=== PATIENT | male | born 1990 | race Caucasian/White ===

== ENCOUNTER 2017-04-10 22:14 | Emergency (ER) | payer OTHER ==
[2017-04-10 22:21] VITALS: BP 151/101; PULSE 85; RESP 16; TEMP 98.4
[2017-04-10] MEDS ORDERED: BUPIVACAINE (PF) 0.5% 30 ML VIAL SQ STA (22:29)
[2017-04-10] MEDS ORDERED: MORPHINE SULFATE 2 MG/ML SYRINGE IM STA (22:30)
[2017-04-10] MEDS ORDERED: KETOROLAC 30 MG/ML 1 ML VIAL IM STA (22:30)
--- NOTE | 2017-04-10 22:34 | ED ---
ENT HPI - General Chief complaint: ENT Stated complaint: dental pain Time Seen by Provider: 04/10/17 22:23 Source: patient Mode of arrival: ambulatory Limitations: no limitations - History of Present Illness Initial comments: 26-year-old male patient presented to the emergency department today for evaluation of left lower dental pain. Patient states that he has had pain for the last week. States that it started out as a mild aching pain. He did see the dentist on Saturday who has scheduled him to have a dental extraction on 04/12/2017. Patient states that yesterday the pain became much more severe. States he is unable to eat, drink, or sleep related to the pain. He reports that he did have swelling to the face up near his eye earlier today. States he has been taking [id number] Tylenol and Motrin for pain control however it is not helping. He denies any difficulty swallowing, any difficulty opening or closing his mouth. He denies any fever or chills with this. Denies any nausea or vomiting. Patient denies any recent rash, shortness breath, chest pain, abdominal pain, diarrhea, constipation, back pain, numbness, tingling, dizziness, weakness, hematuria, dysuria, urinary urgency, urinary frequency, headache, visual changes, or any other complaints. Patient states he does still have his wisdom teeth and these are also scheduled to be removed on Saturday. - Related Data Home Medications Medication Instructions Recorded Confirmed Ibuprofen [Motrin] 200 - 400 mg PO Q6HR PRN 04/10/17 04/10/17 Previous Rx's Medication Instructions Recorded Hydrocodone/Acetaminophen [[place] 1 tab PO Q6HR PRN #12 tab 04/10/17 5-325] Ibuprofen [Motrin] 600 mg PO Q8HR PRN #30 tab 04/10/17 Penicillin V Potassium [Pen Vee K] 500 mg PO Q6H #40 tablet 04/10/17 Allergies Allergy/AdvReac Type Severity Reaction Status Date / Time No Known Allergies Allergy Verified 04/10/17 22:38 Review of Systems ROS Statement: Those systems with pertinent positive or pertinent negative responses have been documented in the HPI. ROS Other: All systems not noted in ROS Statement are negative. Past Medical History Past Medical History: No Reported History History of Any Multi-Drug Resistant Organisms: None Reported Past Surgical History: No Surgical Hx Reported Past Psychological History: No Psychological Hx Reported Smoking Status: Never smoker Past Alcohol Use History: None Reported Past Drug Use History: None Reported General Exam Limitations: no limitations General appearance: alert, in no apparent distress, other (This is a well- developed, well-nourished adult male patient in no acute distress. Vital signs upon presentation are temperature 98.4F, pulse 85, respirations 16, blood pressure 151/101, pulse ox 98% on room air.) Eye exam: Present: normal appearance, PERRL, EOMI. Absent: scleral icterus, conjunctival injection, periorbital swelling ENT exam: Present: normal exam, normal oropharynx, mucous membranes moist, TM's normal bilaterally, other (Fractured tooth #17. No surrounding gingival erythema or swelling. No evidence of drainable abscess. Mild left-sided facial swelling.) Neck exam: Present: normal inspection, full ROM. Absent: tenderness, meningismus, lymphadenopathy Respiratory exam: Present: normal lung sounds bilaterally. Absent: respiratory distress, wheezes, rales, rhonchi, stridor Cardiovascular Exam: Present: regular rate, normal rhythm, normal heart sounds. Absent: systolic murmur, diastolic murmur, rubs, gallop, clicks Neurological exam: Present: alert, oriented X3, CN II-XII intact Psychiatric exam: Present: normal affect, normal mood Skin exam: Present: warm, dry, intact, normal color. Absent: rash Course Vital Signs 04/10/17 22:19 Temperature 98.4 F Pulse Rate 85 Respiratory 16 Rate Blood Pressure 151/101 O2 Sat by Pulse 98 Oximetry Medical Decision Making - Medical Decision Making 26-year-old male patient presented to the emergency department today for evaluation of left lower dental pain. Physical examination did reveal a fractured tooth #17. There is no evidence of gingival erythema or swelling, no evidence of drainable abscess. Patient will be given IM doses of pain medication here in the department. He'll be given prescription for pain medication to get him through until his dentist appointment on Saturday. He is urged to keep this dental appointment to have the tooth extracted. He is instructed to apply warm compresses to the outside of the face. He is instructed to follow-up with his primary care physician as necessary. He is instructed to return here immediately for any new, worsening, or concerning symptoms. He verbalizes understanding and agrees with this plan. Disposition Clinical Impression: Pain, dental Disposition: HOME SELF-CARE Condition: Good Instructions: Toothache (ED) Additional Instructions: Apply warm compresses to the outside of the face. Take medications as directed. Follow-up with dentist as you have planned. Return here immediately for any new, worsening, or concerning symptoms. Prescriptions: Hydrocodone/Acetaminophen [[place] 5-325] 1 tab PO Q6HR PRN #12 tab PRN Reason: Pain Ibuprofen [Motrin] 600 mg PO Q8HR PRN #30 tab PRN Reason: Pain Penicillin V Potassium [Pen Vee K] 500 mg PO Q6H #40 tablet Referrals: None,Stated [Primary Care Provider] - 1-2 days Time of Disposition: 22:34
== END 2017-04-10 22:46 | disposition home or self-care (01) ==
LOC: EC 22:14
DX: K08.89 Other specified disorders of teeth and supporting structures (principal); R22.0 Localized swelling, mass and lump, head
CPT/HCPCS: 99282; 96372 ×2; J1885; J2270

== ENCOUNTER 2018-03-31 00:46 | Emergency (ER) | payer OTHER ==
[2018-03-31 00:51] VITALS: BP 118/75; PULSE 85; RESP 16; TEMP 98.6
[2018-03-31] MEDS ORDERED: LIDOCAINE VISCOUS 2% 15 ML CUP MUCOUS MEM ONE (01:04)
[2018-03-31] MEDS ORDERED: DEXAMETHASONE SOD PHOSPHATE 10 MG/ML 1 ML VIAL IM STA (01:05)
--- NOTE | 2018-03-31 01:07 | ED ---
ENT HPI - General Source: patient, RN notes reviewed Mode of arrival: ambulatory Limitations: no limitations <Mauricio Gardiner - Last Filed: 03/31/18 02:03> <Sadie Mcgill - Last Filed: 03/31/18 05:42> - General Chief complaint: ENT Stated complaint: sore throat Time Seen by Provider: 03/31/18 00:50 - History of Present Illness Initial comments: 27-year-old male presents emergency Department chief complaint sore throat 3 days. Patient states that it's progressively gotten worse. Patient had fevers and chills at home. Patient states that it feels like he is swallowing glass every time he swallows. Patient states that he's feeling sensation in his throat is swelling noted able swallow well at this time. Denies headache, dizziness, abdominal pain, nausea vomiting. Patient does have a history of mono but denies any current fatigue. Patient has NO KNOWN DRUG ALLERGIES. He has been taken Tylenol Motrin at home. (Mauricio Gardiner) - Related Data Home Medications Medication Instructions Recorded Confirmed Ibuprofen [Motrin] 200 - 400 mg PO Q6HR PRN 04/10/17 04/10/17 Previous Rx's Medication Instructions Recorded Hydrocodone/Acetaminophen [[place] 1 tab PO Q6HR PRN #12 tab 04/10/17 5-325] Ibuprofen [Motrin] 600 mg PO Q8HR PRN #30 tab 04/10/17 Penicillin V Potassium [Pen Vee K] 500 mg PO Q6H #40 tablet 04/10/17 Azithromycin [Zithromax Z-pack] 0 mg PO DIRECTED #1 pack 03/31/18 Lidocaine Viscous 2% [Xylocaine 10 ml MUCOUS MEM Q6HR #200 ml 03/31/18 Viscous] Allergies Allergy/AdvReac Type Severity Reaction Status Date / Time No Known Allergies Allergy Verified 03/31/18 00:51 Review of Systems ROS Other: All systems not noted in ROS Statement are negative. <Mauricio Gardiner - Last Filed: 03/31/18 02:03> ROS Other: All systems not noted in ROS Statement are negative. <Sadie Mcgill - Last Filed: 03/31/18 05:42> ROS Statement: Those systems with pertinent positive or pertinent negative responses have been documented in the HPI. Past Medical History Past Medical History: No Reported History History of Any Multi-Drug Resistant Organisms: None Reported Past Surgical History: No Surgical Hx Reported Past Psychological History: No Psychological Hx Reported Smoking Status: Never smoker Past Alcohol Use History: None Reported Past Drug Use History: None Reported <Mauricio Gardiner - Last Filed: 03/31/18 02:03> General Exam Limitations: no limitations General appearance: alert, in no apparent distress Head exam: Present: atraumatic, normocephalic, normal inspection Eye exam: Present: normal appearance, PERRL, EOMI. Absent: scleral icterus, conjunctival injection, periorbital swelling ENT exam: Present: mucous membranes moist, TM's normal bilaterally, normal external ear exam. Absent: normal oropharynx (Erythematous posterior pharynx and edematous tonsils though swallowing secretions well) Neck exam: Present: normal inspection, full ROM, lymphadenopathy. Absent: tenderness, meningismus, thyromegaly Respiratory exam: Present: normal lung sounds bilaterally. Absent: respiratory distress, wheezes, rales, rhonchi, stridor Cardiovascular Exam: Present: regular rate, normal rhythm, normal heart sounds. Absent: systolic murmur, diastolic murmur, rubs, gallop, clicks Neurological exam: Present: alert Skin exam: Present: warm, dry, intact, normal color. Absent: rash <Mauricio Gardiner - Last Filed: 03/31/18 02:03> Vital Signs 03/31/18 00:49 Temperature 98.6 F Pulse Rate 85 Respiratory 16 Rate Blood Pressure 118/75 O2 Sat by Pulse 99 Oximetry Medical Decision Making <Mauricio Gardiner - Last Filed: 03/31/18 02:03> <Sadie Mcgill - Last Filed: 03/31/18 05:42> - Medical Decision Making 27-year-old male presents emergency Department for sore throat. Patient does have erythematous pharynx and slightly edematous tonsils no exudates. Clinically the patient has strep pharyngitis will be treated with azithromycin at this time. Patient was informed that he does have a history of mild this may be mild presentation. We discussed that there is no specific treatment for mono. Patient will increase fluids, Tylenol, Motrin and we given lidocaine if no relief with any [id number] medications. (Mauricio Gardiner) I was available for consultation in the emergency department. The history and physical exam were done by the midlevel provider. I was consulted for this patient's care. I reviewed the case with the midlevel provider and based on their presentation of the patient, I agree with the assessment, medical decision making and plan of care as documented. (Sadie Mcgill) - Lab Data Lab Results 03/31/18 Range/Units 01:25 Group A Strep Rapid Negative (Negative) Disposition Is patient prescribed a controlled substance at d/c from ED?: No Time of Disposition: 02:06 <Mauricio Gardiner - Last Filed: 03/31/18 02:03> <Sadie Mcgill - Last Filed: 03/31/18 05:42> Clinical Impression: Acute pharyngitis Disposition: HOME SELF-CARE Condition: Stable Instructions: Pharyngitis (ED) Additional Instructions: Please return to the Emergency Department if symptoms worsen or any other concerns. Prescriptions: Azithromycin [Zithromax Z-pack] 0 mg PO DIRECTED #1 pack Lidocaine Viscous 2% [Xylocaine Viscous] 10 ml MUCOUS MEM Q6HR #200 ml Referrals: Agustin Hidalgo MD [Primary Care Provider] - 1-2 days
[2018-03-31] MEDS ORDERED: AZITHROMYCIN 250 MG TAB PO STA (02:03)
== END 2018-03-31 02:12 | disposition home or self-care (01) ==
LOC: EC 00:46
DX: J02.9 Acute pharyngitis, unspecified (principal)
CPT/HCPCS: 87081; 87430; 99283; 96372; J1100

== ENCOUNTER → 2022-03-08 | Outpatient (CLI) | payer BC ==
--- NOTE | 2022-03-08 20:03 | MR ---
MR thoracic spine HISTORY: Pain Multiplanar multisequence imaging obtained through the thoracic spine, no comparisons There is no significant spinal stenosis or foraminal encroachment. No sizable disc herniation. Thorac ic cord signal is maintained. Facet arthropathy changes are present at the lower thoracic spine. Ther e is a spinal curvature noted. Thoracic vertebral bodies show preserved height, alignment, and bone m ineralization. Disc spaces are maintained. IMPRESSION: There is a spinal curvature present. Facet arthropathy.
== END | disposition home or self-care (01) ==
LOC: RADMRIMAIN 16:32
PROVIDERS: ATTEND Family Medicine
DX: M47.814 Spondylosis without myelopathy or radiculopathy, thoracic region (principal); M43.8X4 Other specified deforming dorsopathies, thoracic region
CPT/HCPCS: 72146